=== PATIENT | male | born 1960 | race Caucasian/White ===

== ENCOUNTER 2017-11-09 22:36 | Emergency (ER) | payer BC, OTHER ==
[2017-11-09 23:06] LABS: URINE BLOOD (Dip) POC Negative (NEGATIVE); URINE GLUCOSE (Dip) POC Negative (NEGATIVE); URINE KETONES (Dip) POC Trace (NEGATIVE); URINE LEUKOCYTE EST (Dip) POC Negative (NEGATIVE); URINE NITRITE (Dip) POC Negative (NEGATIVE); URINE TOTAL PROTEIN POC 2+ (NEGATIVE)
[2017-11-09 23:06] LABS: URINE PH (Dip) POC 5.5 (5.0-8.5)
[2017-11-09 23:14] LABS: ADD MAN DIFF? NO
[2017-11-09 23:17] LABS: WHITE BLOOD COUNT 10.9 10^3/ul (4.8-10.8)
[2017-11-09 23:17] LABS: BASOPHIL # 0.2 10^3/ul (0.0-0.1); BASOPHILS % 1.4 % (0.0-2.0); EOSINOPHILS # 0.7 10^3/ul (0.0-0.5); EOSINOPHILS % 6.2 % (0.0-7.0); HEMATOCRIT 38.3 % (42.0-52.0); HEMOGLOBIN 12.5 g/dl (14.0-18.0); LYMPHOCYTES # 2.3 10^3/ul (0.8-2.9); LYMPHOCYTES % 20.7 % (15.0-51.0); MEAN CORPUSCULAR HGB CONC 32.6 g/dl (32.0-37.0); MEAN CORPUSCULAR VOLUME 85.9 fl (82.0-101.0); MEAN PLATELET VOLUME 11.4 fl (7.4-10.4); MONOCYTE # 0.9 10^3/ul (0.3-0.9); MONOCYTES % 8.5 % (0.0-11.0); NEUTROPHIL # 6.9 10^3/ul (1.6-7.5); NEUTROPHILS % 62.8 % (39.0-77.0); PLATELET COUNT 362 10^3/UL (140-415); RED BLOOD COUNT 4.46 10^6/ul (4.70-6.10); RED CELL DISTRIBUTION WIDTH 16.4 % (11.5-14.5)
[2017-11-09 23:33] LABS: INR 1.14; PARTIAL THROMBOPLASTIN TIME 30.8 Sec (25.0-35.0); PROTIME 14.8 Sec (11.9-14.9); PT RATIO 1.2
[2017-11-09 23:35] LABS: ALANINE AMINOTRANSFERASE 36 IU/L (13-69); ALBUMIN 4.2 g/dl (3.3-4.9); ALKALINE PHOSPHATASE 121 IU/L (42-121); ANION GAP 19 (8-16); ASPARTATE AMINO TRANSFERASE 19 IU/L (15-46); BLOOD UREA NITROGEN 31 mg/dl (7-20); CALCIUM 8.9 mg/dl (8.4-10.2); CARBON DIOXIDE 24 mmol/L (21-31); CHLORIDE 102 mmol/L (97-110); CREATININE 1.11 mg/dl (0.61-1.24); GLUCOSE 114 mg/dl (70-220); POTASSIUM 4.3 mmol/L (3.5-5.1); SODIUM 141 mmol/L (135-144); TOTAL PROTEIN 7.2 g/dl (6.1-8.1)
[2017-11-09 23:36] LABS: AMPHETAMINE/METHAMPHETAMINE Negative (NEGATIVE); BARBITURATES Negative (NEGATIVE); BENZODIAZEPINES Negative (NEGATIVE)
[2017-11-09 23:46] LABS: B-TYPE NATRIURETIC PEPTIDE 6180 PG/ML (0-125); TROPONIN-I 0.014 ng/ml (0.00-0.12)
[2017-11-09 23:50] LABS: COCAINE Negative (NEGATIVE)
[2017-11-09 23:56] LABS: ETHANOL < 10.0 mg/dl
[2017-11-10 00:03] LABS: CANNABINOIDS Negative (NEGATIVE)
[2017-11-10 00:04] LABS: OPIATES Negative (NEGATIVE)
[2017-11-10] MEDS: PANTOPRAZOLE (EC) 40 MG TAB PO (06:40)
[2017-11-10] MEDS: FAMOTIDINE 20 MG TAB PO (07:44)
[2017-11-10] MEDS: LIDOCAINE/MYLANTA 40 ML BTL PO (07:44)
[2017-11-10 11:48] LABS: CREATINE KINASE 120 IU/L (23-200)
[2017-11-10 11:59] LABS: CK INDEX 0.8
[2017-11-10 12:02] LABS: CK-MB 0.98 ng/ml (0.0-2.4); TROPONIN-I < 0.012 ng/ml (0.00-0.12)
[2017-11-10 13:05] LABS: CREATINE KINASE 105 IU/L (23-200)
[2017-11-10 13:16] LABS: CK INDEX 0.8; CK-MB 0.79 ng/ml (0.0-2.4); TROPONIN-I < 0.012 ng/ml (0.00-0.12)
== END 2017-11-10 12:47 | disposition short-term general hospital (02) ==
LOC: E/R 22:36
DX: R07.9 Chest pain, unspecified (principal); D64.9 Anemia, unspecified; R40.2142 Coma scale, eyes open, spontaneous, at arrival to emergency department; R40.2252 Coma scale, best verbal response, oriented, at arrival to emergency department; R40.2362 Coma scale, best motor response, obeys commands, at arrival to emergency department; I10 Essential (primary) hypertension; I50.9 Heart failure, unspecified; Z79.82 Long term (current) use of aspirin
CPT/HCPCS: 36415; 71045; 80053; 80306; 80307; 81003; 82550; 82553; 83880; 84484; 85025; 85610; 85730; 99285-25

== ENCOUNTER 2017-12-21 00:43 | Emergency (ER) | payer BC ==
[2017-12-21] MEDS: morphine 4 MG/ML VIAL IV (01:25)
[2017-12-21] MEDS: KETOROLAC 30 MG INJ IV (01:25)
[2017-12-21 02:03] LABS: ABNORMAL IP MESSAGE 1; ADD MAN DIFF? NO; BASOPHIL # 0.1 10^3/ul (0.0-0.1); BASOPHILS % 0.8 % (0.0-2.0); EOSINOPHILS # 0.7 10^3/ul (0.0-0.5); EOSINOPHILS % 5.5 % (0.0-7.0); HEMATOCRIT 39.9 % (42.0-52.0); HEMOGLOBIN 12.7 g/dl (14.0-18.0); LYMPHOCYTES # 1.4 10^3/ul (0.8-2.9); LYMPHOCYTES % 11.9 % (15.0-51.0); MEAN CORPUSCULAR HEMOGLOBIN 26.9 pg (29.0-33.0); MEAN CORPUSCULAR HGB CONC 31.8 g/dl (32.0-37.0); MEAN CORPUSCULAR VOLUME 84.5 fl (82.0-101.0); MEAN PLATELET VOLUME 12.5 fl (7.4-10.4); MONOCYTE # 1.3 10^3/ul (0.3-0.9); MONOCYTES % 11.1 % (0.0-11.0); NEUTROPHIL # 8.4 10^3/ul (1.6-7.5); NEUTROPHILS % 70.3 % (39.0-77.0); PLATELET COUNT 210 10^3/UL (140-415); POSITIVE DIFF @See below; RED BLOOD COUNT 4.72 10^6/ul (4.70-6.10); RED CELL DISTRIBUTION WIDTH 22.9 % (11.5-14.5)
[2017-12-21 02:03] LABS: WHITE BLOOD COUNT 11.9 10^3/ul (4.8-10.8)
[2017-12-21 02:25] LABS: INR 1.15; PARTIAL THROMBOPLASTIN TIME 31.1 Sec (25.0-35.0); PROTIME 14.9 Sec (11.9-14.9); PT RATIO 1.2
[2017-12-21 02:31] LABS: ALANINE AMINOTRANSFERASE 35 IU/L (13-69); ALBUMIN 3.7 g/dl (3.3-4.9); ALBUMIN/GLOBULIN RATIO 1.15; ALKALINE PHOSPHATASE 111 IU/L (42-121); ANION GAP 12 (8-16); ASPARTATE AMINO TRANSFERASE 29 IU/L (15-46); BILIRUBIN,INDIRECT 0.9 mg/dl (0-1.1); BILIRUBIN,TOTAL 0.9 mg/dl (0.2-1.3); BLOOD UREA NITROGEN 20 mg/dl (7-20); CALCIUM 8.9 mg/dl (8.4-10.2); CARBON DIOXIDE 36 mmol/L (21-31); CHLORIDE 96 mmol/L (97-110); CREATININE 1.09 mg/dl (0.61-1.24); GLUCOSE 123 mg/dl (70-220); POTASSIUM 3.7 mmol/L (3.5-5.1); SODIUM 140 mmol/L (135-144); TOTAL PROTEIN 6.9 g/dl (6.1-8.1); URIC ACID 7.2 mg/dl (3.1-7.9)
[2017-12-21 02:42] LABS: B-TYPE NATRIURETIC PEPTIDE 4010 PG/ML (0-125); TROPONIN-I < 0.012 ng/ml (0.00-0.12)
[2017-12-21 06:17] LABS: CREATINE KINASE 49 IU/L (23-200)
[2017-12-21 06:20] LABS: CK INDEX 2.1; TROPONIN-I 0.013 ng/ml (0.00-0.12)
[2017-12-21 06:29] LABS: CK-MB 1.01 ng/ml (0.0-2.4)
== END 2017-12-21 07:18 | disposition home or self-care (01) ==
LOC: E/R 07:18
DX: R07.9 Chest pain, unspecified (principal); Z79.82 Long term (current) use of aspirin
CPT/HCPCS: 36415; 71045; 80053; 82550; 82553; 83880; 84484; 84560; 85025; 85610; 85730; 93005; 96374; 96375; 99285-25